=== PATIENT | female | born 1995 | race American Indian/Alaskan Native ===

== ENCOUNTER 2021-10-18 17:46 | Emergency (ER) | payer SELFPAY ==
[2021-10-18] MEDS ORDERED: SODIUM CHLORIDE 0.9% 500 ML 500 ML IV ONE (18:05)
[2021-10-18] MEDS: ACETAMINOPHEN 325 MG TAB PO ONE ×2 (18:19→18:38)
[2021-10-18] MEDS ORDERED: SODIUM CHLORIDE 0.9% 1000 ML 1,000 ML IV ONE ×2 (18:27→21:44)
[2021-10-18] MEDS ORDERED: MORPHINE 4 MG/1 ML INJ IV ONE (18:28)
[2021-10-18 18:29] LABS: Bilirubin,Urine NEG (Negative); Blood,Urine NEG (Negative); Color,Urine Colorless (Yellow); Protein,Urine <15 mg/dL mg/dL (Negative); RBC,Urine < 1.0 /HPF (0.0-6.0); Urobilinogen,Urine < 2.0 mg/dL (<2.0)
--- NOTE | 2021-10-18 18:31 | Emergency Department Report ---
HPI - General Chief Complaint: Headache Time Seen by Provider: 10/18/21 18:21 - HPI HPI: 26-year-old -[place] female presents to the emergency department with a complaint of a headache that is been going on since about 4 AM this morning. She describes the pain as pressure behind the eyes that is currently 9 out of 10 in intensity. No known aggravating or alleviating factors. She denies any neck pain, back pain, numbness or paresthesias, slurred speech, focal or lateralizing weakness. Patient is currently about 7 weeks and follows with [facility]. She complains of some pelvic pressure/discomfort but denies any dysuria, vaginal bleeding, vaginal discharge. She has not taken anything for symptoms prior to presentation today. No recent travel or sick contacts at home. She denies any chest pain, shortness of breath, lower extremity swelling. The patient was found to have a low-grade fever and does admit to having some chills but denies knowing that she was febrile. She is not vaccinated for COVID-19. ED Past Medical Hx - Past Medical History Previous Medical History?: No - Surgical History Past Surgical History?: Yes Additional Surgical History: 2013 - Social History Smoking Status: Never Smoker Substance Use Type: None ED Review of Systems ROS: Stated complaint: 7WKS /FEEL HOT/FEEL LIKE ABOUT TO PASS OUT Other details as noted in HPI Comment: All other systems reviewed and negative Constitutional: chills, fever ENT: denies: ear pain, throat pain Respiratory: denies: cough, shortness of breath Cardiovascular: denies: chest pain, palpitations Gastrointestinal: denies: abdominal pain, vomiting Genitourinary: other (pelvic pain). denies: dysuria, discharge Musculoskeletal: denies: back pain, joint swelling Skin: denies: rash, lesions Neurological: headache. denies: weakness, numbness, paresthesias Physical Exam - Physical Exam Vital Signs: Vital Signs 10/18/21 17:58 Temperature 101.3 F H Pulse Rate 118 H Respiratory 20 Rate Blood Pressure 121/70 O2 Sat by Pulse 99 Oximetry Physical Exam: GENERAL: The patient is well-developed well-nourished. HENT: Normocephalic. Atraumatic. Patient has moist mucous membranes. EYES: Extraocular motions are intact. Pupils equal reactive to light bilaterally. No nystagmus. NECK: Supple. Trachea is midline. No meningismus signs. CHEST/LUNGS: Clear to auscultation. There is no respiratory distress noted. HEART/CARDIOVASCULAR: Regular. There is no tachycardia. There is no murmur. ABDOMEN: Abdomen is soft, nontender. Patient has normal bowel sounds. SKIN: Skin is warm and dry. NEURO: The patient is awake, alert, and oriented. The patient is cooperative. The patient has no focal neurologic deficits. Normal speech. Cranial nerves II through XII grossly intact. No facial asymmetry. MUSCULOSKELETAL: There is no tenderness or deformity. There is no limitation range of motion. ED Course Vital Signs 10/18/21 17:58 Temperature 101.3 F H Pulse Rate 118 H Respiratory 20 Rate Blood Pressure 121/70 O2 Sat by Pulse 99 Oximetry Vital Signs 10/18/21 10/18/21 10/18/21 17:58 21:34 21:55 Temperature 101.3 F H 98.9 F Pulse Rate 118 H 89 Respiratory 20 18 11 L Rate Blood Pressure 121/70 106/58 O2 Sat by Pulse 99 100 Oximetry 10/18/21 10/18/21 10/18/21 22:00 22:16 22:30 Temperature Pulse Rate 83 76 88 Respiratory 17 15 17 Rate Blood Pressure 112/67 112/67 102/69 O2 Sat by Pulse 98 98 98 Oximetry 10/18/21 22:46 Temperature 98.1 F Pulse Rate Respiratory Rate Blood Pressure O2 Sat by Pulse Oximetry ED Medical Decision Making - Lab Data Result diagrams: 10/18/21 18:10 10/18/21 18:10 Lab Results 10/18/21 10/18/21 10/18/21 Range/Units 18:10 18:10 18:10 WBC 4.8 (4.5-11.0) K/mm3 RBC 3.54 L (3.65-5.03) M/mm3 Hgb 11.3 (10.1-14.3) gm/dl Hct 32.1 (30.3-42.9) % MCV 91 (79-97) fl MCH 32 (28-32) pg MCHC 35 H (30-34) % RDW 12.7 L (13.2-15.2) % Plt Count 225 (140-440) K/mm3 Lymph % (Auto) 8.7 L (13.4-35.0) % [place] % (Auto) 14.9 H (0.0-7.3) % Eos % (Auto) 0.5 (0.0-4.3) % Baso % (Auto) 0.4 (0.0-1.8) % Lymph # (Auto) 0.4 L (1.2-5.4) K/mm3 [place] # (Auto) 0.7 (0.0-0.8) K/mm3 Eos # (Auto) 0.0 (0.0-0.4) K/mm3 Baso # (Auto) 0.0 (0.0-0.1) K/mm3 Seg Neutrophils % 75.5 H (40.0-70.0) % Seg Neutrophils # 3.6 (1.8-7.7) K/mm3 VBG pH (7.320-7.420) Sodium 134 L (137-145) mmol/L Potassium 3.5 L (3.6-5.0) mmol/L Chloride 99.2 (98-107) mmol/L Carbon Dioxide 21 L (22-30) mmol/L Anion Gap 17 mmol/L BUN 4 L (7-17) mg/dL Creatinine 0.8 (0.6-1.2) mg/dL Estimated GFR > 60 ml/min BUN/Creatinine Ratio 5 % Glucose 101 H (65-100) mg/dL Lactic Acid 1.10 (0.7-2.0) mmol/L Calcium 9.4 (8.4-10.2) mg/dL Total Bilirubin < 0.20 (0.1-1.2) mg/dL AST 22 (5-40) units/L ALT 15 (7-56) units/L Alkaline Phosphatase 40 (35-129) units/L Total Protein 7.3 (6.3-8.2) g/dL Albumin 4.2 (3.9-5) g/dL Albumin/Globulin Ratio 1.4 % HCG, Quant (0-4) mIU/mL Urine Color (Yellow) Urine Turbidity (Clear) Urine pH (5.0-7.0) Ur Specific [place] (1.003-1.030) Urine Protein (Negative) mg/dL Urine Glucose (UA) (Negative) mg/dL Urine Ketones (Negative) mg/dL Urine Blood (Negative) Urine Nitrite (Negative) Urine Bilirubin (Negative) Urine Urobilinogen (<2.0) mg/dL Ur Leukocyte Esterase (Negative) Urine WBC (Auto) (0.0-6.0) /HPF Urine RBC (Auto) (0.0-6.0) /HPF 10/18/21 10/18/21 10/18/21 Range/Units 18:10 18:19 Unknown WBC (4.5-11.0) K/mm3 RBC (3.65-5.03) M/mm3 Hgb (10.1-14.3) gm/dl Hct (30.3-42.9) % MCV (79-97) fl MCH (28-32) pg MCHC (30-34) % RDW (13.2-15.2) % Plt Count (140-440) K/mm3 Lymph % (Auto) (13.4-35.0) % [place] % (Auto) (0.0-7.3) % Eos % (Auto) (0.0-4.3) % Baso % (Auto) (0.0-1.8) % Lymph # (Auto) (1.2-5.4) K/mm3 [place] # (Auto) (0.0-0.8) K/mm3 Eos # (Auto) (0.0-0.4) K/mm3 Baso # (Auto) (0.0-0.1) K/mm3 Seg Neutrophils % (40.0-70.0) % Seg Neutrophils # (1.8-7.7) K/mm3 VBG pH 7.395 (7.320-7.420) Sodium (137-145) mmol/L Potassium (3.6-5.0) mmol/L Chloride (98-107) mmol/L Carbon Dioxide (22-30) mmol/L Anion Gap mmol/L BUN (7-17) mg/dL Creatinine (0.6-1.2) mg/dL Estimated GFR ml/min BUN/Creatinine Ratio % Glucose (65-100) mg/dL Lactic Acid (0.7-2.0) mmol/L Calcium (8.4-10.2) mg/dL Total Bilirubin (0.1-1.2) mg/dL AST (5-40) units/L ALT (7-56) units/L Alkaline Phosphatase (35-129) units/L Total Protein (6.3-8.2) g/dL Albumin (3.9-5) g/dL Albumin/Globulin Ratio % HCG, Quant 80382 H (0-4) mIU/mL Urine Color Colorless (Yellow) Urine Turbidity Clear (Clear) Urine pH 6.0 (5.0-7.0) Ur Specific [place] 1.001 L (1.003-1.030) Urine Protein <15 mg/dl (Negative) mg/dL Urine Glucose (UA) Neg (Negative) mg/dL Urine Ketones Neg (Negative) mg/dL Urine Blood Neg (Negative) Urine Nitrite Neg (Negative) Urine Bilirubin Neg (Negative) Urine Urobilinogen < 2.0 (<2.0) mg/dL Ur Leukocyte Esterase Neg (Negative) Urine WBC (Auto) < 1.0 (0.0-6.0) /HPF Urine RBC (Auto) < 1.0 (0.0-6.0) /HPF - Radiology Data Radiology results: report reviewed OB Ultrasound HISTORY: pain in . TECHNIQUE: Grayscale and color imaging performed. COMPARISON: None FINDINGS: Uterus measures 9.2 x 5.6 x 6.4 cm. Single viable intrauterine gestation with crown-rump length measuring 1 cm which corresponds with an EGA of 7 weeks and 1 day and gestational sac diameter of 3.4 cm corresponding with an EGA of 8 weeks and 4 days. Overall the combined gestational age by ultrasound is 8 weeks and 1 day with estimated delivery date of 05/29/2022. Heart rate is 147 bpm. Right ovary is not visualized. Left ovary is unremarkable. IMPRESSION: Single viable intrauterine gestation as above. - Medical Decision Making This patient presents to the emergency department with a complaint of a headache behind her eyes, and some pelvic discomfort, while . All this started early this morning. On examination she does not have any focal, motor or sensory deficits and her cranial nerves are intact. Patient was initially seen through triage and there was concern for sepsis given a low-grade fever and some tachycardia. Patient's labs have been mostly unremarkable including CBC, metabolic panel, negative urinalysis, normal lactic acid level, and her beta hCG is greater than 50,000. Patient refused rapid flu and strep tests. She had a ultrasound that shows a live intrauterine at about 7 weeks. She was given 2 doses of IV analgesia and IV fluid resuscitation. She was given a dose of Tylenol. Upon reevaluation the vital signs have improved. The fever and tachycardia have resolved and have not returned after multiple hours. Patient's headache has come down to about a 3-4 out of 10. She has been seen ambulatory in the emergency department with appears and feels stable. As she does not have any focal, motor or sensory deficits and cranial nerves are intact, and since the patient is , I did not feel the patient requires CT imaging of the head at this time. Patient complained of some sore throat, nasal congestion, and overall I think the patient could have a viral syndrome causing the URI symptoms and headache. She does not have any neck stiffness, rigidity, or meningismus signs. It should also be noted that the patient says that she has had a headache such as this 1 time previously when she abruptly stopped caffeine intake, and the patient says that she had gone 5 or 6 days in a row without any coffee. We discussed seeking outpatient COVID-19 testing. She will follow up with her [facility] and primary care in the next few days. She will return to the emergency department with any worsening of her symptoms or with any acute distress. Critical Care Time: No Critical care attestation.: If time is entered above; I have spent that time in minutes in the direct care of this critically ill patient, excluding procedure time. ED Disposition Clinical Impression: Qualifiers: Weeks of gestation: less than 8 weeks Qualified Code(s): Z3A.01 - Less than 8 weeks gestation of Headache Qualifiers: Headache chronicity pattern: unspecified pattern Intractability: not intractable Disposition: 01 HOME / SELF CARE / HOMELESS Is pt being admited?: No Condition: Stable Instructions: General Headache Without Cause, First Trimester of Additional Instructions: Please follow-up with your primary care physician and [facility] in the next few days. I have given you a referral for a local neurologist, Dr. Rodas, to follow-up regarding your headaches. Return to the emergency department with any worsening of your symptoms, new or concerning symptoms not addressed during this current emergency department visit, or with any acute distress. Referrals: EDGAR GARCIA MD [Primary Care Provider] - 3-5 Days FERNANDA RODAS MD [Referring] - 3-5 Days [facility] [Provider Group] - 3-5 Days Time of Disposition: 23:14
[2021-10-18 18:37] LABS: WBC,Urine < 1.0 /HPF (0.0-6.0)
[2021-10-18 18:37] LABS: Basophils % (Auto) 0.4 % (0.0-1.8); Eosinophils % (Auto) 0.5 % (0.0-4.3); Hematocrit 32.1 % (30.3-42.9); Hemoglobin 11.3 gm/dl (10.1-14.3); Lymphocytes # (Auto) 0.4 K/mm3 (1.2-5.4); Lymphocytes % (Auto) 8.7 % (13.4-35.0); Mean Corpuscular HGB Conc 35 % (30-34); Mean Corpuscular Volume 91 fl (79-97); Monocytes # (Auto) 0.7 K/mm3 (0.0-0.8); Monocytes % (Auto) 14.9 % (0.0-7.3); Platelet Count 225 K/mm3 (140-440); Red Blood Count 3.54 M/mm3 (3.65-5.03); Red Cell Distribution Width 12.7 % (13.2-15.2)
[2021-10-18 18:47] LABS: Alanine Aminotransferase 15 units/L (7-56); Albumin 4.2 g/dL (3.9-5); BUN/Creatinine Ratio 5; Blood Urea Nitrogen 4 mg/dL (7-17); Calcium 9.4 mg/dL (8.4-10.2); Hemolysis Index 16
--- NOTE | 2021-10-18 20:14 | Ultrasound Report ---
OB Ultrasound HISTORY: pain in . TECHNIQUE: Grayscale and color imaging performed. COMPARISON: None FINDINGS: Uterus measures 9.2 x 5.6 x 6.4 cm. Single viable intrauterine gestation with crown-rump length measuring 1 cm which corresponds with an EGA of 7 weeks and 1 day and gestational sac diameter of 3.4 cm corresponding with an EGA of 8 weeks and 4 days. Overall the combined gestational age by ultrasound is 8 weeks and 1 day with estimated de livery date of 05/29/2022. Heart rate is 147 bpm. Right ovary is not visualized. Left ovary is unremarkable. IMPRESSION: Single viable intrauterine gestation as above. Signer Name: Joe Mohamud MD Signed: 10/18/2021 8:10 PM Workstation Name: [id number]
[2021-10-18] MEDS ORDERED: MORPHINE 2 MG/1 ML INJ IV ONE (21:44)
[2021-10-19] MEDS ORDERED: MORPHINE 4 MG/1 ML INJ ONE (02:10)
[2021-10-19 02:49] LABS: INR 0.99 (0.87-1.13)
[2021-10-19 04:27] VITALS: BP 110/63
[2021-10-19] MEDS ORDERED: MORPHINE 4 MG/1 ML INJ IV ONE (12:00)
[2021-10-20] MEDS ORDERED: MORPHINE 4 MG/1 ML INJ IV ONE (02:00)
== END 2021-10-19 04:28 | disposition home or self-care (01) ==
LOC: ED 17:46
DX: O26.891 Other specified pregnancy related conditions, first trimester (principal); R51.9 Headache, unspecified; Z3A.01 Less than 8 weeks gestation of pregnancy; Z98.890 Other specified postprocedural states
CPT/HCPCS: 36415; 76801; 80053; 81001; 82140; 82805; 84702; 85025; 85610; 87040; 87086; 96361; 96374; 96376; 99284; J2270; J7030; Q0162